=== PATIENT | female | born 1970 | race Caucasian/White ===

== ENCOUNTER 2016-10-26 16:57 | Inpatient (IN) | payer OTHER ==
[~2016-10-26] VITALS: Ht 162.6 cm; Wt 92.5 kg
[~2016-10-26 16:57] MED LIST: ATORVASTATIN CA80 MG PO; ATROVENT H200 INHALA IH; CLOPIDOGREL75 MG PO; FLOVENT 11120 INHALA IH; GABAPENTIN400 MG PO; HYDROCHLOROTHIA25 MG PO; ISOSORBIDE MONO60 MG PO; LANTUS 10100 UNITS/ SC; LEVO-T300 MCG PO; LISINOPRIL40 MG PO; NAPROXEN500 MG PO; NITROGLYCERIN0.4 MG SL; NOVOLOG 10100 UNITS/ SC; PEN-VEE K,VEET500 MG PO; PERCOCET 5/31 TABLET PO; PROAIR RESPICL90 MCG IH; PROTONIX40 MG PO; PROVENTIL,2.5 MG/3 M IH; TOPROL XL50 MG PO; ZOFRAN ODT4 MG PO
[2016-10-26 18:36] LABS: HEMATOCRIT 44.6 % (36.0-46.0); MCH 30.1 PG (29.0-34.0); MCV 91.2 FL (83-99); MEAN PLAT.VOLUME 10.7 uM^3 (9.5-12.4); PLATELET COUNT 429 K/uL (156-360); RBC DIS.WIDTH-CV 12.5 % (11.8-14.6); RBC DIS.WIDTH-SD 40.9 % (39-53); RED BLOOD COUNT 4.89 M/uL (3.80-5.20)
[2016-10-26 18:44] LABS: CHLORIDE 90 mEq/L (99-109); POTASSIUM 4.2 mEq/L (3.7-5.4); SODIUM 133 mEq/L (136-147)
[2016-10-26 18:45] LABS: GLUCOSE 257 mg/dL (70-99)
[2016-10-26 18:47] LABS: ANION GAP 10 MEQ/L (2-14)
[2016-10-26 18:49] LABS: GFR ESTIMATE (CALCULATED) > 59 mL/min/
[2016-10-26 18:50] LABS: UREA NITROGEN (BUN) 9 mg/dL (9-23)
[2016-10-26] MEDS ORDERED: GABAPENTIN300 MG PO (19:00)
[2016-10-26 19:02] LABS: D-DIMER ELISA 0.55 mg/L FEU (< 0.57)
[2016-10-26] MEDS ORDERED: AUGMENTIN875 MG PO (19:02)
[2016-10-26] MEDS ORDERED: PROAIR HFA8.5 GM IH (21:29)
[2016-10-26] MEDS ORDERED: CLOPIDOGREL75 MG PO (21:30)
[2016-10-26] MEDS ORDERED: NOVOLOG 10100 UNITS/ SC (21:31)
[2016-10-26 22:25] LABS: ADD MIUA? YES; BILIRUBIN NEGATIVE; BLOOD NEGATIVE; COLOR YELLOW ((YELLOW)); GLUCOSE (STRIP) 100; KETONES NEGATIVE; LEUKOCYTES NEGATIVE; NITRITE NEGATIVE; PROTEIN (STRIP) 100
[2016-10-26 22:42] LABS: BACTERIA RARE; CASTS PRESENT /LPF; CRYSTALS NONE SEEN; EPITHELIAL CELLS RARE; MUCUS RARE; RED BLOOD CELLS 0-5 /HPF (0-5); UCUL ADDED? NO; WHITE BLOOD CELLS NONE SEEN /HPF (0-5)
[2016-10-27 06:17] LABS: EOSINOPHIL (%) 4.9 % (0-5); EOSINOPHIL COUNT 0.4 K/uL (0-0.3); IMMATURE GRANULOCYTE (%) 0.1 % (0.0-0.7); LYMPHOCYTE COUNT 3.6 K/uL (1.0-2.8); MCH 29.7 PG (29.0-34.0); MEAN PLAT.VOLUME 10.7 uM^3 (9.5-12.4); MONOCYTE (%) 8.7 % (3-12); MONOCYTE COUNT 0.8 K/uL (0-0.8); NEUTROPHIL (%) 45.5 % (45-76); NEUTROPHIL COUNT 4.1 K/uL (1.8-6.4); PLATELET COUNT 367 K/uL (156-360); RBC DIS.WIDTH-CV 12.6 % (11.8-14.6); RBC DIS.WIDTH-SD 42.4 % (39-53); RED BLOOD COUNT 4.41 M/uL (3.80-5.20)
[2016-10-27 06:44] LABS: ANION GAP 5 MEQ/L (2-14); CHLORIDE 99 MEQ/L (99-109); GFR ESTIMATE (CALCULATED) > 59 mL/min/; GLUCOSE 142 mg/dL (70-99); SAMPLE HEMOLYSIS CHECK 0; SAMPLE ICTERIC CHECK 0; SAMPLE LIPEMIA CHECK 0; SODIUM 137 MEQ/L (136-147); UREA NITROGEN (BUN) 7 mg/dL (9-23)
[2016-10-27 06:51] LABS: POTASSIUM 3.1 MEQ/L (3.7-5.4)
[2016-10-27 14:05] VITALS: BP 122/68
[2016-10-27 17:01] LABS: POINT-OF-CARE METER ID UU14149396
[2016-10-27 17:23] VITALS: BP 130/64
[2016-10-27 17:24] LABS: POINT-OF-CARE METER ID UU14149396
[2016-10-27 19:50] VITALS: BP 129/75
[2016-10-27 22:24] LABS: POINT-OF-CARE METER ID UU14149396
[2016-10-28] VITALS (7 sets, daily range): BP systolic 105–161; BP diastolic 59–96
[2016-10-28 06:15] LABS: HEMATOCRIT 40.7 % (36.0-46.0); MCH 30.9 PG (29.0-34.0); MCHC 32.7 G/DL (30.0-36.0); MCV 94.4 FL (83-99); MEAN PLAT.VOLUME 10.9 uM^3 (9.5-12.4); PLATELET COUNT 387 K/uL (156-360); RBC DIS.WIDTH-CV 12.7 % (11.8-14.6); RBC DIS.WIDTH-SD 43.8 % (39-53); RED BLOOD COUNT 4.31 M/uL (3.80-5.20); WHITE BLOOD COUNT 9.4 K/uL (4.1-10.2)
[2016-10-28 06:58] LABS: ANION GAP 6 MEQ/L (2-14); CHLORIDE 101 MEQ/L (99-109); GFR ESTIMATE (CALCULATED) > 59 mL/min/; SAMPLE HEMOLYSIS CHECK 0; SAMPLE ICTERIC CHECK 0; SAMPLE LIPEMIA CHECK 0; SODIUM 140 MEQ/L (136-147); UREA NITROGEN (BUN) 4 mg/dL (9-23)
[2016-10-28 06:59] LABS: GLUCOSE 89 mg/dL (70-99); POTASSIUM 4.3 MEQ/L (3.7-5.4)
[2016-10-28 07:54] LABS: POINT-OF-CARE METER ID UU14149398
[2016-10-28 11:39] LABS: POINT-OF-CARE METER ID UU14149398
[2016-10-28 15:29] LABS: POINT-OF-CARE METER ID UU14149398
[2016-10-28 21:38] LABS: POINT-OF-CARE METER ID UU14149396
[2016-10-29] VITALS: BP 120/66
[2016-10-29 04:45] VITALS: BP 123/58
[2016-10-29 07:41] LABS: INTERNAL CONTROL VALID? YES
[2016-10-29 07:50] VITALS: BP 124/63
[2016-10-29 08:02] LABS: POINT-OF-CARE METER ID UU14149398
[2016-10-29 11:54] LABS: POINT-OF-CARE METER ID UU14149398
[2016-10-29 15:37] VITALS: BP 130/61
[2016-10-29 16:25] LABS: POINT-OF-CARE METER ID UU14149396
[2016-10-29 20:15] VITALS: BP 145/69
[2016-10-29 21:44] LABS: POINT-OF-CARE METER ID UU14149398
[2016-10-30] VITALS (7 sets, daily range): BP systolic 128–165; BP diastolic 71–99
[2016-10-30 07:19] LABS: EOSINOPHIL (%) 3.8 % (0-5); EOSINOPHIL COUNT 0.4 K/uL (0-0.3); HEMATOCRIT 39.2 % (36.0-46.0); IMMATURE GRANULOCYTE (%) 0.2 % (0.0-0.7); LYMPHOCYTE COUNT 3.2 K/uL (1.0-2.8); MCH 30.1 PG (29.0-34.0); MCHC 32.1 G/DL (30.0-36.0); MCV 93.8 FL (83-99); MEAN PLAT.VOLUME 10.7 uM^3 (9.5-12.4); MONOCYTE (%) 7.2 % (3-12); MONOCYTE COUNT 0.7 K/uL (0-0.8); NEUTROPHIL COUNT 5.5 K/uL (1.8-6.4); PLATELET COUNT 444 K/uL (156-360); RBC DIS.WIDTH-CV 12.9 % (11.8-14.6); RED BLOOD COUNT 4.18 M/uL (3.80-5.20); WHITE BLOOD COUNT 9.8 K/uL (4.1-10.2)
[2016-10-30 07:47] LABS: ALKALINE PHOSPHATASE 143 IU/L (3-129); ANION GAP 7 MEQ/L (2-14); CHLORIDE 102 MEQ/L (99-109); GFR ESTIMATE (CALCULATED) > 59 mL/min/; GLUCOSE 125 mg/dL (70-99); SAMPLE HEMOLYSIS CHECK 0; SAMPLE ICTERIC CHECK 0; SAMPLE LIPEMIA CHECK 0; SODIUM 137 MEQ/L (136-147); TOTAL BILIRUBIN 0.3 MG/DL (0.0-1.0); UREA NITROGEN (BUN) 8 mg/dL (9-23)
[2016-10-30 08:24] LABS: POINT-OF-CARE METER ID UU14149396
[2016-10-30 11:56] LABS: POINT-OF-CARE METER ID UU13113807
[2016-10-30 17:56] LABS: POINT-OF-CARE METER ID UU13113807
[2016-10-30 22:44] LABS: POINT-OF-CARE METER ID UU13113807
[2016-10-31 03:35] VITALS: BP 130/61
[2016-10-31 07:48] LABS: POINT-OF-CARE METER ID UU14149396
[2016-10-31 08:00] VITALS: BP 130/63
[2016-10-31 12:29] LABS: POINT-OF-CARE METER ID UU13113819
[2016-10-31 12:56] LABS: POINT-OF-CARE METER ID UU13113819
[2016-10-31 13:53] VITALS: BP 156/79
[2016-10-31 16:00] VITALS: BP 135/67
[2016-10-31 16:23] LABS: POINT-OF-CARE METER ID UU14149396
[2016-10-31 20:00] VITALS: BP 164/79
[2016-10-31 21:13] LABS: POINT-OF-CARE METER ID UU14149396
[2016-11-01] VITALS (7 sets, daily range): BP systolic 129–181; BP diastolic 61–89
[2016-11-01 00:25] LABS: QGTB-NIL 0.03 IU/mL (()); TB AG-NIL 0.06 IU/mL (())
[2016-11-01 04:24] LABS: EOSINOPHIL (%) 4.7 % (0-5); EOSINOPHIL COUNT 0.5 K/uL (0-0.3); IMMATURE GRANULOCYTE (%) 0.2 % (0.0-0.7); IMMATURE GRANULOCYTE COUNT 0.2 K/uL; LYMPHOCYTE COUNT 2.6 K/uL (1.0-2.8); MCH 29.8 PG (29.0-34.0); MCHC 32.3 G/DL (30.0-36.0); MCV 92.2 FL (83-99); MEAN PLAT.VOLUME 10.3 uM^3 (9.5-12.4); MONOCYTE (%) 8.7 % (3-12); MONOCYTE COUNT 0.9 K/uL (0-0.8); NEUTROPHIL (%) 60.6 % (45-76); NEUTROPHIL COUNT 6.2 K/uL (1.8-6.4); PLATELET COUNT 443 K/uL (156-360); RBC DIS.WIDTH-CV 12.6 % (11.8-14.6); RBC DIS.WIDTH-SD 41.2 % (39-53); RED BLOOD COUNT 4.23 M/uL (3.80-5.20); WHITE BLOOD COUNT 10.3 K/uL (4.1-10.2)
[2016-11-01 04:45] LABS: POTASSIUM 4.3 mEq/L (3.7-5.4); SODIUM 141 mEq/L (136-147)
[2016-11-01 04:47] LABS: CHLORIDE 105 mEq/L (99-109); GLUCOSE 156 mg/dL (70-99)
[2016-11-01 04:48] LABS: ANION GAP 8 MEQ/L (2-14)
[2016-11-01 04:49] LABS: TOTAL BILIRUBIN 0.3 mg/dL (0.0-1.0)
[2016-11-01 04:51] LABS: ALKALINE PHOSPHATASE 134 IU/L (3-129); GFR ESTIMATE (CALCULATED) > 59 mL/min/
[2016-11-01 04:52] LABS: UREA NITROGEN (BUN) 5 mg/dL (9-23)
[2016-11-01 07:48] LABS: POINT-OF-CARE METER ID UU14149398
[2016-11-01 11:58] LABS: POINT-OF-CARE METER ID UU14149398
[2016-11-01 16:12] LABS: POINT-OF-CARE METER ID UU14149398
[2016-11-01 21:43] LABS: POINT-OF-CARE METER ID UU14149398
[2016-11-02 04:09] VITALS: BP 144/70
[2016-11-02 04:14] LABS: EOSINOPHIL (%) 6.1 % (0-5); EOSINOPHIL COUNT 0.6 K/uL (0-0.3); HEMATOCRIT 39.7 % (36.0-46.0); IMMATURE GRANULOCYTE (%) 0.2 % (0.0-0.7); IMMATURE GRANULOCYTE COUNT 0.2 K/uL; MCHC 32.7 G/DL (30.0-36.0); MCV 91.5 FL (83-99); MEAN PLAT.VOLUME 10.2 uM^3 (9.5-12.4); MONOCYTE (%) 8.7 % (3-12); MONOCYTE COUNT 0.8 K/uL (0-0.8); NEUTROPHIL (%) 53.3 % (45-76); NEUTROPHIL COUNT 5.1 K/uL (1.8-6.4); PLATELET COUNT 429 K/uL (156-360); RBC DIS.WIDTH-CV 12.7 % (11.8-14.6); RBC DIS.WIDTH-SD 41.4 % (39-53); RED BLOOD COUNT 4.34 M/uL (3.80-5.20); WHITE BLOOD COUNT 9.6 K/uL (4.1-10.2)
[2016-11-02 04:40] LABS: CHLORIDE 103 mEq/L (99-109); POTASSIUM 4.2 mEq/L (3.7-5.4); SODIUM 138 mEq/L (136-147)
[2016-11-02 04:42] LABS: GLUCOSE 189 mg/dL (70-99)
[2016-11-02 04:43] LABS: ANION GAP 7 MEQ/L (2-14)
[2016-11-02 04:44] LABS: TOTAL BILIRUBIN 0.3 mg/dL (0.0-1.0)
[2016-11-02 04:45] LABS: ALKALINE PHOSPHATASE 138 IU/L (3-129)
[2016-11-02 04:46] LABS: GFR ESTIMATE (CALCULATED) > 59 mL/min/
[2016-11-02 04:47] LABS: UREA NITROGEN (BUN) 5 mg/dL (9-23)
[2016-11-02 08:00] VITALS: BP 136/66
[2016-11-02 08:40] LABS: POINT-OF-CARE METER ID UU14149398
[2016-11-02 12:00] VITALS: BP 133/70
[2016-11-02 12:07] LABS: POINT-OF-CARE METER ID UU14149396
[2016-11-02 16:00] VITALS: BP 124/68
[2016-11-02 16:49] LABS: POINT-OF-CARE METER ID UU14149396
[2016-11-02 20:00] VITALS: BP 150/76
[2016-11-02 21:43] LABS: POINT-OF-CARE METER ID UU14149396
[2016-11-02 23:27] VITALS: BP 137/71
[2016-11-03] VITALS (7 sets, daily range): BP systolic 109–139; BP diastolic 56–86
[2016-11-03 06:26] LABS: EOSINOPHIL (%) 6.3 % (0-5); EOSINOPHIL COUNT 0.6 K/uL (0-0.3); HEMATOCRIT 43.4 % (36.0-46.0); IMMATURE GRANULOCYTE (%) 0.2 % (0.0-0.7); LYMPHOCYTE COUNT 3.3 K/uL (1.0-2.8); MCH 29.4 PG (29.0-34.0); MCV 91.9 FL (83-99); MEAN PLAT.VOLUME 10.4 uM^3 (9.5-12.4); MONOCYTE (%) 6.7 % (3-12); MONOCYTE COUNT 0.6 K/uL (0-0.8); NEUTROPHIL COUNT 4.3 K/uL (1.8-6.4); PLATELET COUNT 424 K/uL (156-360); RBC DIS.WIDTH-CV 12.8 % (11.8-14.6); RBC DIS.WIDTH-SD 43.3 % (39-53); RED BLOOD COUNT 4.72 M/uL (3.80-5.20); WHITE BLOOD COUNT 8.7 K/uL (4.1-10.2)
[2016-11-03 06:56] LABS: ALKALINE PHOSPHATASE 132 IU/L (3-129); ANION GAP 10 MEQ/L (2-14); CHLORIDE 103 MEQ/L (99-109); GFR ESTIMATE (CALCULATED) > 59 mL/min/; GLUCOSE 166 mg/dL (70-99); POTASSIUM 4.1 MEQ/L (3.7-5.4); SAMPLE HEMOLYSIS CHECK 0; SAMPLE ICTERIC CHECK 0; SAMPLE LIPEMIA CHECK 0; SODIUM 140 MEQ/L (136-147); UREA NITROGEN (BUN) 5 mg/dL (9-23)
[2016-11-03 06:57] LABS: TOTAL BILIRUBIN 0.4 MG/DL (0.0-1.0)
[2016-11-03 07:46] LABS: POINT-OF-CARE METER ID UU14149398
[2016-11-03 11:44] LABS: POINT-OF-CARE METER ID UU14149398
[2016-11-03 17:27] LABS: POINT-OF-CARE METER ID UU14149396
[2016-11-03 21:37] LABS: POINT-OF-CARE METER ID UU14149398
[2016-11-04 03:30] VITALS: BP 126/74
[2016-11-04 08:03] VITALS: BP 115/71
[2016-11-04 08:14] LABS: POINT-OF-CARE METER ID UU14149396; POINT-OF-CARE USER ID 606021404
[2016-11-04] MEDS ORDERED: DOXYCYCLINE HY100 M3 PO (11:17)
[2016-11-04] MEDS ORDERED: CIPRO500 MG PO (11:17)
[2016-11-04] MEDS ORDERED: ULTRA-LIGHT RO1 EACH MC (11:31)
== END 2016-11-04 12:04 | disposition home or self-care (01) | DRG 571 ==
LOC: EME 16:57 → EDOF 23:10 → 4SOUTH 23:10
PROVIDERS: Emergency Medicine; Family Medicine; Hospitalist; Internal Medicine; Internal Medicine Pulmonary Disease; Physician Assistant
PROC: 047L3ZZ Dilation of Left Femoral Artery, Percutaneous Approach (ICD-10-PCS; principal; 2016-10-31)
PROC: 0JBR0ZZ Excision of Left Foot Subcutaneous Tissue and Fascia, Open Approach (ICD-10-PCS; 2016-11-03)
DX: L03.116 Cellulitis of left lower limb (principal); L97.829 Non-pressure chronic ulcer of other part of left lower leg with unspecified severity; E11.65 Type 2 diabetes mellitus with hyperglycemia; E11.40 Type 2 diabetes mellitus with diabetic neuropathy, unspecified; J44.9 Chronic obstructive pulmonary disease, unspecified; L97.529 Non-pressure chronic ulcer of other part of left foot with unspecified severity; I70.248 Atherosclerosis of native arteries of left leg with ulceration of other part of lower leg; I70.245 Atherosclerosis of native arteries of left leg with ulceration of other part of foot; I25.10 Atherosclerotic heart disease of native coronary artery without angina pectoris; I10 Essential (primary) hypertension; K21.9 Gastro-esophageal reflux disease without esophagitis; E03.9 Hypothyroidism, unspecified; E78.5 Hyperlipidemia, unspecified; M19.90 Unspecified osteoarthritis, unspecified site; F17.210 Nicotine dependence, cigarettes, uncomplicated; R91.8 Other nonspecific abnormal finding of lung field; I77.89 Other specified disorders of arteries and arterioles; I25.2 Old myocardial infarction; Z95.1 Presence of aortocoronary bypass graft; Z79.4 Long term (current) use of insulin
CPT/HCPCS: 71020; 71275; 73630; 80048; 80053; 80202; 81003; 82009; 82948; 83605; 85025; 85027; 85379; 86480 90; 87040; 87070; 87205; 87449; 93005; 93306; 94640; 94640 76; 94760; 94799; 97530 GP; 99202; 99281; 99285; C1725; C1760; C1769; C1887; C1894; J0696; J1644; J1815; J2250; J2270; J2405; J2543; J3010; J3370; J7030; J7050; S0020

== ENCOUNTER 2016-11-16 17:22 | Inpatient (IN) | payer OTHER ==
[~2016-11-16] VITALS: Ht 162.6 cm; Wt 90.1 kg
[~2016-11-16 17:22] MED LIST changes: +AUGMENTIN875 MG PO; +CIPRO500 MG PO; +DOXYCYCLINE HY100 M3 PO; +GABAPENTIN300 MG PO; +PROAIR HFA8.5 GM IH; +ULTRA-LIGHT RO1 EACH MC
[2016-11-16 18:09] LABS: CHLORIDE 95 mEq/L (99-109); POTASSIUM 3.7 mEq/L (3.7-5.4); SODIUM 134 mEq/L (136-147)
[2016-11-16 18:11] LABS: HEMATOCRIT 50.4 % (36.0-46.0); MCH 29.3 PG (29.0-34.0); MCHC 33.9 G/DL (30.0-36.0); RBC DIS.WIDTH-CV 13.5 % (11.8-14.6); RBC DIS.WIDTH-SD 42.9 % (39-53); WHITE BLOOD COUNT 9.9 K/uL (4.1-10.2)
[2016-11-16 18:12] LABS: ANION GAP 13 MEQ/L (2-14)
[2016-11-16 18:15] LABS: GFR ESTIMATE (CALCULATED) > 59 mL/min/; UREA NITROGEN (BUN) 14 mg/dL (9-23)
[2016-11-16 18:25] LABS: GLUCOSE 456 mg/dL (70-99)
[2016-11-16 18:49] LABS: BASOPHIL COUNT 0.1 K/uL (0-0.1); EOSINOPHIL (%) 2.7 % (0-5); EOSINOPHIL COUNT 0.3 K/uL (0-0.3); HEMATOLOGY COMMENT 1 SMEAR COMPATIBLE; IMMATURE GRANULOCYTE (%) 0.1 % (0.0-0.7); IMMATURE GRANULOCYTE COUNT 0.1 K/uL; LYMPHOCYTE COUNT 2.7 K/uL (1.0-2.8); MEAN PLAT.VOLUME 11.5 uM^3 (9.5-12.4); MONOCYTE (%) 6.2 % (3-12); MONOCYTE COUNT 0.6 K/uL (0-0.8); NEUTROPHIL (%) 62.5 % (45-76); NEUTROPHIL COUNT 6.2 K/uL (1.8-6.4); PLAT.SUFFICIENCY NORMAL
[2016-11-16 19:32] LABS: MCV 86.4 FL (83-99); PLATELET COUNT 295 K/uL (156-360); RED BLOOD COUNT 5.83 M/uL (3.80-5.20)
[2016-11-16 20:04] LABS: ADD MIUA? YES; BILIRUBIN SMALL; BLOOD NEGATIVE; COLOR DK YELLOW ((YELLOW)); GLUCOSE (STRIP) >=1000; KETONES 15; LEUKOCYTES NEGATIVE; NITRITE NEGATIVE; PH, URINE 6.5 (5-8); PROTEIN (STRIP) >=300; UROBILINOGEN 0.2 MG/DL (0.2-1.0)
[2016-11-16 20:58] LABS: AMORPHOUS URATES CRYSTALS 1+; BACTERIA NONE SEEN; CASTS PRESENT /LPF; CRYSTALS PRESENT; EPITHELIAL CELLS 1+; FINE GRANULAR CASTS 0-5 /LPF; HYALINE CASTS RARE /LPF; MUCUS NONE SEEN; RED BLOOD CELLS 0-5 /HPF (0-5); UCUL ADDED? NO; WHITE BLOOD CELLS 0-5 /HPF (0-5)
[2016-11-16 21:18] LABS: POINT-OF-CARE METER ID UU13113747
[2016-11-16 22:26] LABS: POINT-OF-CARE METER ID UU13113747
[2016-11-16] MEDS ORDERED: BACTRIM,SEPT1 TABLET PO (22:27)
[2016-11-17 00:06] LABS: SERUM ETHYL ALCOHOL < 10 mg/dL
[2016-11-17 00:34] LABS: POINT-OF-CARE METER ID UU13113747
[2016-11-17 06:16] LABS: POINT-OF-CARE METER ID UU13113747
[2016-11-17 06:45] LABS: POTASSIUM 3.2 mEq/L (3.7-5.4); SODIUM 139 mEq/L (136-147)
[2016-11-17 06:46] LABS: CHLORIDE 105 mEq/L (99-109)
[2016-11-17 06:48] LABS: ANION GAP 10 MEQ/L (2-14)
[2016-11-17 06:49] LABS: TOTAL BILIRUBIN 0.4 mg/dL (0.0-1.0)
[2016-11-17 06:51] LABS: ALKALINE PHOSPHATASE 121 IU/L (3-129); GFR ESTIMATE (CALCULATED) > 59 mL/min/
[2016-11-17 06:52] LABS: UREA NITROGEN (BUN) 12 mg/dL (9-23)
[2016-11-17 07:01] LABS: GLUCOSE 186 mg/dL (70-99)
[2016-11-17 08:20] VITALS: BP 89/50
[2016-11-17 12:00] VITALS: BP 95/51
[2016-11-17 12:47] LABS: POINT-OF-CARE METER ID UU14162513
[2016-11-17 16:00] VITALS: BP 91/53
[2016-11-17 17:40] LABS: POINT-OF-CARE METER ID UU14162513
[2016-11-17 21:26] LABS: POINT-OF-CARE METER ID UU13113700
[2016-11-17 21:33] VITALS: BP 129/69
[2016-11-18] VITALS (7 sets, daily range): BP systolic 121–170; BP diastolic 61–981
[2016-11-18 07:18] LABS: C-REACTIVE PROTEIN 1.8 MG/L (0-10); GFR ESTIMATE (CALCULATED) > 59 mL/min/
[2016-11-18 08:42] LABS: POINT-OF-CARE METER ID UU14162513
[2016-11-18 09:38] LABS: MAGNESIUM 1.5 mg/dl (1.3-2.7)
[2016-11-18 13:10] LABS: POINT-OF-CARE METER ID UU14162513
[2016-11-19 03:29] VITALS: BP 138/65
[2016-11-19 05:23] LABS: BASOPHIL COUNT 0.1 K/uL (0-0.1); EOSINOPHIL (%) 7.1 % (0-5); EOSINOPHIL COUNT 0.6 K/uL (0-0.3); HEMATOCRIT 45.9 % (36.0-46.0); IMMATURE GRANULOCYTE (%) 0.1 % (0.0-0.7); LYMPHOCYTE COUNT 4.2 K/uL (1.0-2.8); MCH 30.1 PG (29.0-34.0); MCHC 33.6 G/DL (30.0-36.0); MCV 89.6 FL (83-99); MONOCYTE (%) 4.5 % (3-12); MONOCYTE COUNT 0.4 K/uL (0-0.8); NEUTROPHIL (%) 40.7 % (45-76); NEUTROPHIL COUNT 3.7 K/uL (1.8-6.4); PLATELET COUNT 281 K/uL (156-360); RBC DIS.WIDTH-CV 13.5 % (11.8-14.6); RBC DIS.WIDTH-SD 44.6 % (39-53); RED BLOOD COUNT 5.12 M/uL (3.80-5.20); WHITE BLOOD COUNT 9.1 K/uL (4.1-10.2)
[2016-11-19 05:48] LABS: ALKALINE PHOSPHATASE 114 IU/L (3-129); ANION GAP 7 MEQ/L (2-14); CHLORIDE 107 MEQ/L (99-109); GFR ESTIMATE (CALCULATED) > 59 mL/min/; POTASSIUM 2.7 MEQ/L (3.7-5.4); SAMPLE HEMOLYSIS CHECK 0; SAMPLE ICTERIC CHECK 0; SAMPLE LIPEMIA CHECK 0; SODIUM 143 MEQ/L (136-147); TOTAL BILIRUBIN 0.5 MG/DL (0.0-1.0); UREA NITROGEN (BUN) 2 mg/dL (9-23)
[2016-11-19 05:57] LABS: GLUCOSE 55 mg/dL (70-99)
[2016-11-19 07:10] VITALS: BP 134/71
[2016-11-19 15:30] VITALS: BP 161/76
[2016-11-19 23:20] VITALS: BP 168/79
[2016-11-20 08:00] VITALS: BP 125/65
[2016-11-20 15:35] VITALS: BP 158/97
[2016-11-20 23:45] VITALS: BP 154/77
[2016-11-21 06:56] VITALS: BP 137/81
[2016-11-21 15:56] VITALS: BP 133/73
[2016-11-21 19:41] VITALS: BP 161/74
[2016-11-21 23:29] VITALS: BP 146/78
[2016-11-22 06:09] VITALS: BP 146/80
[2016-11-22 10:15] LABS: POINT-OF-CARE METER ID UU13113675
[2016-11-22 10:45] LABS: EOSINOPHIL (%) 8.2 % (0-5); EOSINOPHIL COUNT 0.5 K/uL (0-0.3); HEMATOCRIT 39.4 % (36.0-46.0); LYMPHOCYTE COUNT 2.9 K/uL (1.0-2.8); MCH 29.4 PG (29.0-34.0); MCHC 32.5 G/DL (30.0-36.0); MCV 90.6 FL (83-99); MEAN PLAT.VOLUME 12.2 uM^3 (9.5-12.4); MONOCYTE (%) 8.8 % (3-12); MONOCYTE COUNT 0.5 K/uL (0-0.8); PLATELET COUNT 202 K/uL (156-360); RBC DIS.WIDTH-CV 13.6 % (11.8-14.6); RBC DIS.WIDTH-SD 45.6 % (39-53); RED BLOOD COUNT 4.35 M/uL (3.80-5.20)
[2016-11-22 10:46] LABS: WHITE BLOOD COUNT 5.9 K/uL (4.1-10.2)
[2016-11-22 10:58] LABS: TROP-I INTERPRETATION NEGATIVE; TROPONIN-I 0.05 ng/mL (0.0-0.30)
[2016-11-22 11:49] VITALS: BP 120/67
[2016-11-22 15:34] VITALS: BP 114/75
[2016-11-22 19:25] VITALS: BP 187/81
[2016-11-22 23:31] VITALS: BP 132/74
[2016-11-23 05:58] LABS: EOSINOPHIL (%) 2.6 % (0-5); EOSINOPHIL COUNT 0.2 K/uL (0-0.3); HEMATOCRIT 38.5 % (36.0-46.0); IMMATURE GRANULOCYTE (%) 0.2 % (0.0-0.7); LYMPHOCYTE COUNT 3.4 K/uL (1.0-2.8); MCH 29.4 PG (29.0-34.0); MCHC 31.9 G/DL (30.0-36.0); MCV 92.1 FL (83-99); MEAN PLAT.VOLUME 12.2 uM^3 (9.5-12.4); NEUTROPHIL (%) 49.4 % (45-76); NEUTROPHIL COUNT 4.6 K/uL (1.8-6.4); PLATELET COUNT 206 K/uL (156-360); RBC DIS.WIDTH-CV 13.9 % (11.8-14.6); RBC DIS.WIDTH-SD 46.6 % (39-53); RED BLOOD COUNT 4.18 M/uL (3.80-5.20); WHITE BLOOD COUNT 9.3 K/uL (4.1-10.2)
[2016-11-23 06:18] LABS: TROP-I INTERPRETATION NEGATIVE; TROPONIN-I 0.05 ng/mL (0.0-0.30)
[2016-11-23 07:15] VITALS: BP 115/59
[2016-11-23 11:50] VITALS: BP 118/57
[2016-11-23 15:29] VITALS: BP 116/58
[2016-11-23 18:58] VITALS: BP 131/70
[2016-11-23 23:49] VITALS: BP 144/68
[2016-11-24 04:21] VITALS: BP 145/78
[2016-11-24 07:40] VITALS: BP 126/65
[2016-11-24 11:18] LABS: HEMATOCRIT 36.2 % (36.0-46.0); MCH 29.3 PG (29.0-34.0); MCHC 31.8 G/DL (30.0-36.0); MCV 92.3 FL (83-99); MEAN PLAT.VOLUME 12.2 uM^3 (9.5-12.4); PLATELET COUNT 229 K/uL (156-360); RBC DIS.WIDTH-SD 47.4 % (39-53); RED BLOOD COUNT 3.92 M/uL (3.80-5.20); WHITE BLOOD COUNT 9.3 K/uL (4.1-10.2)
[2016-11-24 11:54] LABS: ALKALINE PHOSPHATASE 114 IU/L (3-129); ANION GAP 8 MEQ/L (2-14); CHLORIDE 104 MEQ/L (99-109); GFR ESTIMATE (CALCULATED) > 59 mL/min/; GLUCOSE 73 mg/dL (70-99); SAMPLE HEMOLYSIS CHECK 0; SAMPLE ICTERIC CHECK 0; SAMPLE LIPEMIA CHECK 0; SODIUM 141 MEQ/L (136-147); TOTAL BILIRUBIN 0.6 MG/DL (0.0-1.0); UREA NITROGEN (BUN) 10 mg/dL (9-23)
[2016-11-24 11:55] LABS: POTASSIUM 3.8 MEQ/L (3.7-5.4)
[2016-11-24 15:37] VITALS: BP 159/76
[2016-11-24 20:12] VITALS: BP 169/98
[2016-11-24 23:51] VITALS: BP 183/84
[2016-11-25 03:44] VITALS: BP 145/74
[2016-11-25 07:15] LABS: EOSINOPHIL (%) 5.2 % (0-5); EOSINOPHIL COUNT 0.4 K/uL (0-0.3); HEMATOCRIT 31.5 % (36.0-46.0); IMMATURE GRANULOCYTE (%) 0.1 % (0.0-0.7); LYMPHOCYTE COUNT 2.7 K/uL (1.0-2.8); MCH 29.3 PG (29.0-34.0); MCHC 32.1 G/DL (30.0-36.0); MCV 91.3 FL (83-99); MEAN PLAT.VOLUME 11.9 uM^3 (9.5-12.4); MONOCYTE (%) 9.5 % (3-12); MONOCYTE COUNT 0.8 K/uL (0-0.8); NEUTROPHIL (%) 52.5 % (45-76); NEUTROPHIL COUNT 4.4 K/uL (1.8-6.4); PLATELET COUNT 216 K/uL (156-360); RBC DIS.WIDTH-CV 13.9 % (11.8-14.6); RBC DIS.WIDTH-SD 46.4 % (39-53); RED BLOOD COUNT 3.45 M/uL (3.80-5.20); WHITE BLOOD COUNT 8.3 K/uL (4.1-10.2)
[2016-11-25 07:41] LABS: ANION GAP 5 MEQ/L (2-14); CHLORIDE 105 MEQ/L (99-109); GFR ESTIMATE (CALCULATED) > 59 mL/min/; POTASSIUM 3.9 MEQ/L (3.7-5.4); SAMPLE HEMOLYSIS CHECK 0; SAMPLE ICTERIC CHECK 0; SAMPLE LIPEMIA CHECK 0; SODIUM 140 MEQ/L (136-147); UREA NITROGEN (BUN) 5 mg/dL (9-23)
[2016-11-25 07:42] LABS: GLUCOSE 116 mg/dL (70-99)
[2016-11-25 07:55] LABS: POINT-OF-CARE USER ID STWLMB34
[2016-11-25 08:12] VITALS: BP 142/80
[2016-11-25] MEDS ORDERED: OXYCODONE-APAP1 EACH PO (11:05)
[2016-11-25] MEDS ORDERED: MORPHINE SULFAT15 M1 PO (11:05)
[2016-11-25] MEDS ORDERED: LEVEMIR100 UNIT/2 SC (11:06)
[2016-11-25 11:20] VITALS: BP 142/82
[2016-11-25 11:49] VITALS: BP 142/82
== END 2016-11-25 14:12 | DRG 240 ==
LOC: EME 17:22 → 5WEST 23:08 → EDOF 23:08 → 5WEST 11-17 08:09 → 2EAST 11-17 16:38 → 5WEST 11-17 16:38 → 2EAST 11-18 15:52
PROVIDERS: Emergency Medicine; Hospitalist; Internal Medicine; Physician Assistant Medical; Surgery
PROC: 0Y6J0Z1 Detachment at Left Lower Leg, High, Open Approach (ICD-10-PCS; principal; 2016-11-22)
DX: E11.52 Type 2 diabetes mellitus with diabetic peripheral angiopathy with gangrene (principal); I70.262 Atherosclerosis of native arteries of extremities with gangrene, left leg; L97.429 Non-pressure chronic ulcer of left heel and midfoot with unspecified severity; E87.1 Hypo-osmolality and hyponatremia; G54.6 Phantom limb syndrome with pain; E11.621 Type 2 diabetes mellitus with foot ulcer; E86.0 Dehydration; R11.2 Nausea with vomiting, unspecified; T36.4X5A Adverse effect of tetracyclines, initial encounter; T36.8X5A Adverse effect of other systemic antibiotics, initial encounter; I95.2 Hypotension due to drugs; T46.4X5A Adverse effect of angiotensin-converting-enzyme inhibitors, initial encounter; T40.2X5A Adverse effect of other opioids, initial encounter; E11.65 Type 2 diabetes mellitus with hyperglycemia; E11.40 Type 2 diabetes mellitus with diabetic neuropathy, unspecified; I10 Essential (primary) hypertension; I25.10 Atherosclerotic heart disease of native coronary artery without angina pectoris; J44.9 Chronic obstructive pulmonary disease, unspecified; E78.5 Hyperlipidemia, unspecified; G47.33 Obstructive sleep apnea (adult) (pediatric); E55.9 Vitamin D deficiency, unspecified; E03.9 Hypothyroidism, unspecified; K21.9 Gastro-esophageal reflux disease without esophagitis; M19.90 Unspecified osteoarthritis, unspecified site; F17.200 Nicotine dependence, unspecified, uncomplicated; I25.2 Old myocardial infarction; Z98.61 Coronary angioplasty status; Z98.62 Peripheral vascular angioplasty status; Z79.4 Long term (current) use of insulin; Z79.02 Long term (current) use of antithrombotics/antiplatelets; Z86.718 Personal history of other venous thrombosis and embolism
CPT/HCPCS: 73630; 73720; 74177; 80048; 80053; 80202; 81003; 82009; 82565; 82948; 83605; 83735; 84484; 85025; 85027; 85651; 86140; 86850; 86900; 86901; 86920; 87040; 87493; 88307; 93005; 94640; 94799; 97530 GP; 99202; 99281; 99285; G0378; G0480; J0295; J0690; J1170; J1650; J1815; J1885; J2250; J2270; J2405; J2543; J2765; J3370; J3475; J3480; J7030; J7050; S0028

== ENCOUNTER 2016-11-25 10:54 | Inpatient (IN) | payer OTHER ==
[~2016-11-25] VITALS: Ht 162.6 cm; Wt 93.5 kg
[~2016-11-25 10:54] MED LIST changes: +BACTRIM,SEPT1 TABLET PO
[2016-11-25] MEDS ORDERED: OXYCODONE-APAP1 EACH PO (11:05)
[2016-11-25] MEDS ORDERED: MORPHINE SULFAT15 M1 PO (11:05)
[2016-11-25] MEDS ORDERED: LEVEMIR100 UNIT/2 SC (11:06)
[2016-11-25 14:29] VITALS: BP 141/87
[2016-11-25 16:38] LABS: POINT-OF-CARE METER ID UU14174215
[2016-11-25 21:27] LABS: POINT-OF-CARE METER ID UU13113720
[2016-11-25 23:57] VITALS: BP 140/84
[2016-11-26 05:49] VITALS: BP 147/82
[2016-11-26 06:31] LABS: HEMATOCRIT 32.9 % (36.0-46.0); MCH 29.1 PG (29.0-34.0); MCHC 31.6 G/DL (30.0-36.0); MCV 92.2 FL (83-99); MEAN PLAT.VOLUME 12.1 uM^3 (9.5-12.4); PLATELET COUNT 252 K/uL (156-360); RBC DIS.WIDTH-CV 13.7 % (11.8-14.6); RBC DIS.WIDTH-SD 45.9 % (39-53); RED BLOOD COUNT 3.57 M/uL (3.80-5.20); WHITE BLOOD COUNT 8.2 K/uL (4.1-10.2)
[2016-11-26 06:48] LABS: ALKALINE PHOSPHATASE 135 IU/L (3-129); ANION GAP 7 MEQ/L (2-14); CHLORIDE 103 MEQ/L (99-109); GFR ESTIMATE (CALCULATED) > 59 mL/min/; POTASSIUM 3.5 MEQ/L (3.7-5.4); SAMPLE HEMOLYSIS CHECK 0; SAMPLE ICTERIC CHECK 0; SAMPLE LIPEMIA CHECK 0; SODIUM 142 MEQ/L (136-147); TOTAL BILIRUBIN 0.7 MG/DL (0.0-1.0); UREA NITROGEN (BUN) 4 mg/dL (9-23)
[2016-11-26 06:49] LABS: GLUCOSE 81 mg/dL (70-99)
[2016-11-26 08:19] LABS: POINT-OF-CARE METER ID UU13113720; POINT-OF-CARE USER ID AHSSSJB31
[2016-11-26 09:52] LABS: POINT-OF-CARE METER ID UU14174215; POINT-OF-CARE USER ID AHSSSJB31
[2016-11-26 11:29] LABS: POINT-OF-CARE METER ID UU13113720; POINT-OF-CARE USER ID AHSSSJB31
[2016-11-26 15:21] VITALS: BP 137/69
[2016-11-26 16:17] LABS: POINT-OF-CARE METER ID UU13113720
[2016-11-26 20:57] LABS: POINT-OF-CARE METER ID UU14174215
[2016-11-27 05:06] VITALS: BP 121/78
[2016-11-27 07:08] LABS: POINT-OF-CARE METER ID UU14174215; POINT-OF-CARE USER ID ENVGAF
[2016-11-27 12:01] LABS: POINT-OF-CARE METER ID UU14174215; POINT-OF-CARE USER ID ENVGAF
[2016-11-27 15:25] VITALS: BP 134/73
[2016-11-27 16:13] LABS: POINT-OF-CARE METER ID UU14174215
[2016-11-27 21:19] LABS: POINT-OF-CARE METER ID UU14174215
[2016-11-28 04:29] VITALS: BP 131/83
[2016-11-28 07:06] LABS: POINT-OF-CARE METER ID UU13113720; POINT-OF-CARE USER ID ENVGAF
[2016-11-28 11:15] LABS: POINT-OF-CARE METER ID UU13113720; POINT-OF-CARE USER ID ENVGAF
[2016-11-28 16:13] VITALS: BP 146/63
[2016-11-28 16:30] LABS: POINT-OF-CARE METER ID UU14174215
[2016-11-28 21:14] LABS: POINT-OF-CARE METER ID UU14174215
[2016-11-29 05:54] VITALS: BP 139/76
[2016-11-29 07:38] LABS: POINT-OF-CARE METER ID UU13113720
[2016-11-29 07:51] LABS: POINT-OF-CARE METER ID UU13113720
[2016-11-29 10:53] VITALS: BP 134/62
[2016-11-29 11:35] LABS: POINT-OF-CARE METER ID UU13113720
[2016-11-29 15:54] VITALS: BP 130/70
[2016-11-29 16:27] LABS: POINT-OF-CARE METER ID UU13113720
[2016-11-29 21:14] LABS: POINT-OF-CARE METER ID UU13113720
[2016-11-30 05:30] VITALS: BP 119/58
[2016-11-30 07:20] LABS: POINT-OF-CARE METER ID UU14174215
[2016-11-30 11:34] LABS: POINT-OF-CARE METER ID UU14174215
[2016-11-30 15:48] VITALS: BP 140/86
[2016-11-30 16:32] LABS: POINT-OF-CARE METER ID UU14174215
[2016-11-30 21:59] LABS: POINT-OF-CARE METER ID UU14174215
[2016-12-01 05:46] VITALS: BP 132/65
[2016-12-01 07:20] LABS: POINT-OF-CARE METER ID UU13113720
[2016-12-01 11:36] LABS: POINT-OF-CARE METER ID UU13113720
[2016-12-01] MEDS ORDERED: FOLIC ACID1 MG PO (13:24)
[2016-12-01] MEDS ORDERED: ISOSORBIDE MONO60 MG PO (13:24)
[2016-12-01] MEDS ORDERED: ATORVASTATIN CA80 MG PO (13:24)
[2016-12-01] MEDS ORDERED: LISINOPRIL40 MG PO (13:24)
[2016-12-01] MEDS ORDERED: CLOPIDOGREL75 MG PO (13:24)
[2016-12-01] MEDS ORDERED: OXYCODONE-APAP1 EACH PO (13:24)
[2016-12-01] MEDS ORDERED: ASCORBIC ACID500 M3 PO (13:24)
[2016-12-01] MEDS ORDERED: MORPHINE SULFAT15 M1 PO (13:24)
[2016-12-01] MEDS ORDERED: CYCLOBENZAPRINE5 MG PO (13:24)
[2016-12-01] MEDS ORDERED: SENNA PLUS TAB1 EACH PO (13:24)
[2016-12-01] MEDS ORDERED: TOPROL XL50 MG PO (13:24)
[2016-12-01] MEDS ORDERED: THERAGRAN1 TABLET PO (13:24)
== END 2016-12-01 15:55 | disposition home health service (06) | DRG 560 ==
LOC: 3WEST 10:54
PROVIDERS: Physical Medicine & Rehabilitation Pain Medicine
PROC: F07M0ZZ Range of Motion and Joint Mobility Treatment of Musculoskeletal System - Whole Body (ICD-10-PCS; principal; 2016-11-25)
DX: Z47.81 Encounter for orthopedic aftercare following surgical amputation (principal); Z89.512 Acquired absence of left leg below knee; R26.2 Difficulty in walking, not elsewhere classified; D62 Acute posthemorrhagic anemia; G54.6 Phantom limb syndrome with pain; M62.838 Other muscle spasm; E87.6 Hypokalemia; E11.43 Type 2 diabetes mellitus with diabetic autonomic (poly)neuropathy; E11.51 Type 2 diabetes mellitus with diabetic peripheral angiopathy without gangrene; J44.9 Chronic obstructive pulmonary disease, unspecified; G47.30 Sleep apnea, unspecified; S81.812A Laceration without foreign body, left lower leg, initial encounter; X58.XXXA Exposure to other specified factors, initial encounter; I10 Essential (primary) hypertension; K21.9 Gastro-esophageal reflux disease without esophagitis; E78.5 Hyperlipidemia, unspecified; E03.9 Hypothyroidism, unspecified; G89.29 Other chronic pain; M54.5 Low back pain; I25.2 Old myocardial infarction; M19.90 Unspecified osteoarthritis, unspecified site; F17.200 Nicotine dependence, unspecified, uncomplicated; Z86.718 Personal history of other venous thrombosis and embolism; Z79.4 Long term (current) use of insulin
CPT/HCPCS: 80053; 82948; 85027; 94640; 94640 76; 97110 GO; 97530 GP; 99202; J1650; J1815

== ENCOUNTER 2017-05-10 14:18 | Emergency (ER) | payer OTHER ==
[~2017-05-10] VITALS: Ht 162.6 cm; Wt 65.0 kg
[~2017-05-10 14:18] MED LIST changes: +ASCORBIC ACID500 M3 PO; +CYCLOBENZAPRINE5 MG PO; +FOLIC ACID1 MG PO; +LEVEMIR100 UNIT/2 SC; +MORPHINE SULFAT15 M1 PO; +OXYCODONE-APAP1 EACH PO; +SENNA PLUS TAB1 EACH PO; +THERAGRAN1 TABLET PO
[2017-05-10] MEDS ORDERED: NAPROSYN500 MG PO (16:19)
[2017-05-10 16:56] VITALS: BP 149/80
== END 2017-05-10 16:58 | disposition home or self-care (01) ==
LOC: EME 14:18
DX: S43.402A Unspecified sprain of left shoulder joint, initial encounter (principal); M54.2 Cervicalgia; W05.0XXA Fall from non-moving wheelchair, initial encounter; Z89.512 Acquired absence of left leg below knee; J44.9 Chronic obstructive pulmonary disease, unspecified; I10 Essential (primary) hypertension; E11.9 Type 2 diabetes mellitus without complications; Z79.4 Long term (current) use of insulin; F17.200 Nicotine dependence, unspecified, uncomplicated
CPT/HCPCS: 73030; 99281; 99283